=== PATIENT | female | born 1950 | race Caucasian/White ===

== ENCOUNTER 2018-07-27 17:59 | Emergency (ER) | payer MEDICARE, MEDICAID ==
[2018-07-27 18:13] VITALS: BP 140/80
--- NOTE | 2018-07-27 19:55 | EDM.PDOC ---
ED HPI GENERAL MEDICAL PROBLEM - General Chief Complaint: Gastrointestinal Problem Stated Complaint: BLEEDING FROM ANUS Time Seen by Provider: 07/27/18 18:51 Source of Information: Reports: Patient History Limitations: Reports: No Limitations - History of Present Illness INITIAL COMMENTS - FREE TEXT/NARRATIVE: 68 y/o female presents to ER with cc blood in her stool. She reports being constipated for the past 2 weeks. Today she drank prune juice and passed multiple hard stools. With the last bowel movement she noticed blood on the tissue. She denies abdominal pain, back pain, weakness, dizziness, fever or chills. Her PCP is at [facility]. She is accompanied by her spouse. Onset: Today Onset Date: 07/27/18 Onset Time: 16:00 Duration: Intermittent Location: Reports: Other (rectal bleeding) Quality: Denies: Ache Severity: Mild Improves with: Reports: None Worsens with: Reports: None Associated Symptoms: Denies: Confusion, Chest Pain, Diaphoresis, Fever/Chills, Nausea/Vomiting, Shortness of Breath - Related Data Allergies Allergy/AdvReac Type Severity Reaction Status Date / Time ephedrine Allergy Hives Verified 07/27/18 18:14 Home Meds: Home Meds Aspirin [Aspirin EC] 325 mg PO DAILY PRN 12/23/15 [History] Past Medical History - Past Health History Medical/Surgical History: Denies Medical/Surgical History - Past Surgical History Musculoskeletal Surgical History: Reports: Other (See Below) Social & Family History - Tobacco Use Smoking Status *Q: Never Smoker - Caffeine Use Caffeine Use: Reports: Coffee, Tea Other Caffeine Use: in the morning 1 cup - Recreational Drug Use Recreational Drug Use: No - Living Situation & Occupation Living situation: Reports: Occupation: Employed ED ROS GENERAL - Review of Systems Review Of Systems: See Below Constitutional: Denies: Fever, Chills HEENT: Reports: Glasses Respiratory: Denies: Shortness of Breath Cardiovascular: Denies: Chest Pain Endocrine: Denies: Fatigue GI/Abdominal: Reports: Constipation, Other (blood on tissue after BM). Denies: Abdominal Pain, Diarrhea, Distension, Nausea, Vomiting : Reports: No Symptoms Musculoskeletal: Denies: Back Pain Skin: Reports: No Symptoms Neurological: Reports: No Symptoms Psychiatric: Reports: No Symptoms Hematologic/Lymphatic: Reports: No Symptoms Immunologic: Reports: No Symptoms ED EXAM, GI/ABD - Physical Exam Exam: See Below Exam Limited By: No Limitations General Appearance: Alert, WD/WN, No Apparent Distress Respiratory/Chest: No Respiratory Distress, Lungs Clear, Normal Breath Sounds, No Accessory Muscle Use, Chest Non-Tender Cardiovascular: Normal Peripheral Pulses, Regular Rate, Rhythm, No Edema, No Gallop, No JVD, No Murmur, No Rub GI/Abdominal Exam: Normal Bowel Sounds, Soft, Non-Tender, No Organomegaly, No Distention, No Abnormal Bruit, No Mass, Pelvis Stable Rectal (Female) Exam: Normal Exam, Normal Rectal Tone, Heme + Stool, Hemorrhoids. No: Rectal Fissure, Tenderness Back Exam: Normal Inspection, Full Range of Motion Neurological: Alert, Oriented Psychiatric: Normal Affect, Normal Mood Skin Exam: Warm, Dry, Intact, Normal Color, No Rash Lymphatic: No Adenopathy Course - Vital Signs Last Recorded V/S: Last Vital Signs Temp 97.5 F 07/27/18 18:09 Pulse 103 H 07/27/18 18:09 Resp 18 07/27/18 18:09 BP 140/80 07/27/18 18:09 Pulse Ox 97 07/27/18 18:09 - Orders/Labs/Meds Orders: Active Orders 24 hr Category Date Time Status Hemoccult [Fecal Occult Blood Collection] [RC] Care 07/27/18 19:21 Active ASDIRECTED KUB [Abdomen 1V Flat] [CR] Stat Exams 07/27/18 19:19 Taken - Re-Assessments/Exams Free Text/Narrative Re-Assessment/Exam: 07/27/18 19:58 68 y/o Female presented to ER with cc blood in her stool today. Her occult blood was positive. She did have a external hemorrhoid on examination. KUB showed moderate stool. I will discharge home with instructions to take over-the -counter MiraLAX or Metamucil for constipation. Instructed patient to increase her fluid intake and fiber intake. Stretcher to follow-up with her PCP. I recommended that she follow-up with a reservoir engineering consultant for further evaluation and colonoscopy. I will refer her to Dr. Sanchez. Instructed patient to return to the emergency room for any new or acutely worsening symptoms. Verbalized understanding and is controlled plan for discharge. Patient is stable time of discharge. Departure - Departure Time of Disposition: 20:00 Disposition: Home, Self-Care 01 Condition: Good Clinical Impression: Blood in stool Constipation Qualifiers: Constipation type: other constipation type Qualified Code(s): K59.09 - Other constipation Hemorrhoids Qualifiers: Hemorrhoid type: unspecified Qualified Code(s): K64.9 - Unspecified hemorrhoids - Discharge Information Instructions: Constipation, Adult, Rectal Bleeding, High-Fiber Diet, Hemorrhoids, [id number] Referrals: Janelle Driscoll NP [Primary Care Provider] - Olivia Rose MD [Physician] - Additional Instructions: You have been diagnosis with constipation, hemorrhoids and bloody stool. I recommend that you take [id number] Metamucil or MiraLAX. In addition I would recommend she increase her fiber and fluid intake. Follow-up through PCP. You should follow-up with a reservoir engineering consultant for further evaluation and colonoscopy. Return to the emergency room for new or acutely worsening symptoms. - My Orders Last 24 Hours: My Active Orders 07/27/18 19:19 KUB [Abdomen 1V Flat] [CR] Stat 07/27/18 19:21 Hemoccult [Fecal Occult Blood Collection] [RC] ASDIRECTED - Assessment/Plan Last 24 Hours: My Active Orders 07/27/18 19:19 KUB [Abdomen 1V Flat] [CR] Stat 07/27/18 19:21 Hemoccult [Fecal Occult Blood Collection] [RC] ASDIRECTED
--- NOTE | 2018-07-28 07:15 | CR ---
Abdomen: Supine view of the abdomen was obtained. Comparison: No previous abdominal x-ray. Slight scoliosis is noted within the spine with scattered degenerative change also seen within the spine. Small calcifications are noted within the left pelvis most likely due to phleboliths. Bowel gas pattern is normal. Possible nonobstructing calculus within the lower right kidney is noted. Impression: 1. Findings as noted above. Nothing acute is appreciated. Diagnostic code #2
== END 2018-07-27 20:20 | disposition home or self-care (01) ==
LOC: JD.ED 17:59
DX: K64.9 Unspecified hemorrhoids (principal); K59.09 Other constipation; Z79.899 Other long term (current) drug therapy; Z88.8 Allergy status to other drugs, medicaments and biological substances
CPT/HCPCS: 74018; 74018-26; 82270; 99282; 99283-25